=== PATIENT | male | born 1970 | race Caucasian/White ===

== ENCOUNTER 2018-03-22 16:30 | Outpatient (RCR) | payer OTHER, SELFPAY ==
--- NOTE | 2018-02-15 18:10 | HP.PTEVAL_ITS ---
Patient's Visit Information KASIE HAIR is a 47 year old M referred to Physical Therapy by ISAI JEFFERY with a diagnosis of LOW BACK PAIN ,BILATERAL KNEE PAIN. Date of Evaluation: 02/15/18 Physical Therapist: Milad Murrell PT, - Visit Plan Frequency: 2x /Week Duration: 4 Weeks Plan: AQUATIC PT for ROM/strength BILATERAL quads/hams/hip,Flexablity,lumbar ROM ,DLS - Subjective Subjective: This 47 y/o male presents to physical therapy for low back pain and shoulder pain 25 years.Patient has no injuries or trauma. Symtrical lumbar pain and isolated right knee pain greater than left. Patient has had prior PT. Symptoms worse in lumbar with bending,twisting,lifting ,sitting,standing. Symtoms some better with walking and rest. Patient pain affects sleeping.Coughing/sneezing -. Seen DR recommended pain MEDS. Patient knee location bilateral knees. Symptoms worse with squatting,kneeling ,descend stairs ,AM. Patient pain in lumbar pain constant affect QOL and job demands,housework tasks. SOCAIL: . VOCATION: Installing garage doors - Pain Bilateral Back Pain Intensity (Out of 10): 6 Pain Intensity Range: 10 Bilateral Knee Pain Intensity (Out of 10): 6 Pain Intensity Range: 10 - Objective POSTURE:mild foward posture. SYMMTRIES : align. PALAPTION: tender joint line, paraspinals. GAIT: antalgic gait right side with decrease stance time. NEURO: denies parathesia/tingling ,reflexes L3-4,L4-5,L5-S1 1/3. AROM: knee flexion R : 0-115 degrees,L:0-120 supine knee flexion. MMT: quads/hip flexion right 3+/5, left 4-/5,hams 4-/5,ankle DF 4/5. LUMBAR ROM: flexion min loss ,extension min loss with pain mside glides min loss pain. FLEXABLITY: hams min loss left , tight mod loss - Special Tests L/S Slump test left side: Negative L/S Slump test right side: Negative L/S Left Straight Leg Raise: Negative L/S Right Straight Leg Raise: Positive Lumbar Standing: Flexion - Mechanical Response: No effect Lumbar Standing: Flexion - Symptoms During Testing: Increases Lumbar Standing: Flexion - Symptoms After Testing: No worse Lumbar Standing: Extension - Mechanical Response: No effect Lumbar Standing: Extension - Symptoms During Testing: Increases Lumbar Standing: Extension - Symptoms After Testing: No worse R Knee Manuel - Meniscus: Positive R Knee Apley - Meniscus: Negative R Knee Maximiliano - ACL: Negative R Knee Anterior Drawer - ACL: Negative R Knee Posterior Sag - PCL: Negative R Knee Valgus - MCL: Negative R Knee Varus - LCL: Negative R Knee Patellar Apprehension - PFS: Positive R Knee Patellar Grind - PFS: Negative L Knee Manuel - Meniscus: Negative L Knee Apley - Meniscus: Negative L Knee Anterior Drawer - ACL: Negative L Knee Valgus - MCL: Negative L Knee Varus - LCL: Negative - Goals Goal 1:: Independant with Aquatic PT Goal Time Frame: 4-6 Weeks Goal 2:: Patient decrease pain knees and back by 50% to improve function with walking and standing. Goal Time Frame: 4-6 Weeks Goal 3:: Patient to increase strength of quads/hams 4-/5 right ,left 4/5 to improve function with walking standing and ASL'S Goal Time Frame: 4-6 Weeks Goal 4:: Patient to improve lumbar ROM for function of recovery Goal Time Frame: 4-6 Weeks Goal 5:: Patient increase ROM knee by 5-10 degrees to improve stairs adn function Goal Time Frame: 4-6 Weeks Goal 6:: Patient be able to perform ADL's and job demands with min limitation Goal Time Frame: 4-6 Weeks - Rehabilitation Potential Physical Therapy Diagnosis: This 47 y/o male has symmtrical lumbar pain and bilateral knee pain with decrease strength right greater than left knee, decrease knee ROM,Lumbar ROM impairs gait and withfunction with ADL'S ,job and housework tasks Rehabilitation Potential: Good - Anticipated Interventions Patient/Client Instruction: Educate patient on: Condition, Plan of Care For the Purpose of:: To decrease pain, To increase ROM, To improve muscle performance and motor function, To improve ability to perform ADL's, To increase tolerance to activity/condition/position, To improve ability of physical actions for home/community/work/leisure, To improve health of tissue, To decrease soft tissue restriction, To increase flexibility/ROM, To improve health and function, To improve ability to perform tasks related to life management Therapeutic Exercise to Include: Strength training, Body mechanics, Postural training, Flexibilty training, In an aquatic setting, Active ROM, Dynamic Lumbar Stabilization For the Purpose of:: To decrease pain, To increase ROM, To improve muscle performance and motor function, To improve ability to perform ADL's, To increase tolerance to activity/condition/position, To improve ability of physical actions for home/community/work/leisure, To improve health of tissue, To decrease soft tissue restriction, To increase flexibility/ROM, To reduce risk of recurrence, To improve ability to perform tasks related to life management Thank you for the opportunity to evaluate your patient. For Medicare and Medicare HMO plans, please review the plan of care and approve it. It will need to be FAXED BACK to us at [phone] for Medicare purposes. Please let me know if there are questions or concerns regarding this plan of care. Physician Signature: Date:
--- NOTE | 2018-07-09 12:27 | HP.PTDCSUM ---
HP - PT D/C Summary It has been my pleasure to treat KASIE HAIR under orders from ISAI JEFFERY, for the diagnosis of LOW BACK PAIN ,BILATERAL KNEE PAIN for a total of 8 visit(s). Discharge Date: 03/22/18 Please see the following information for a summary of their discharge status. - Subjective Subjective: Patient thinks PT didnt helped. Plan to do see DRCandido - Pain Bilateral Back Pain Intensity (Out of 10): 4 Bilateral Knee Pain Intensity (Out of 10): 4 - Overall Improvement % Improvement: 25 - Objective Objective/Function: POSTURE: mild foward posture. GAIT: normal everett. MMT: 4/5. LUMBAR ROM: flexion min/mod loss ,extension min/mod loss ,side glides min loss. FLEXABLITTY: mod hams. AROM: 0-130 degrres knee - Goals Goal 1:: Independant with Aquatic PT Goal Progress: Progressing Goal 2:: Patient decrease pain knees and back by 50% to improve function with walking and standing. Goal Progress: Not Progressing Goal 3:: Patient to increase strength of quads/hams 4-/5 right ,left 4/5 to improve function with walking standing and ASL'S Goal Progress: Goal Met Goal 4:: Patient to improve lumbar ROM for function of recovery Goal Progress: Progressing Goal 5:: Patient increase ROM knee by 5-10 degrees to improve stairs adn function Goal Progress: Progressing Goal 6:: Patient be able to perform ADL's and job demands with min limitation Goal Progress: Progressing - Plan Plan: D/C RTD - D/C Information If there are questions or concerns regarding this patient's physical therapy, please feel free to call me at [phone]. Thank you for the referral of this patient. Sincerely, Milad Murrell, PT, Cert MDT, OCS
== END 2018-03-22 19:00 | disposition home or self-care (01) ==
LOC: PT 16:30
DX: M54.5 Low back pain (principal)
CPT/HCPCS: 97113; 97162; 97530; G8978; G8979

== ENCOUNTER → 2023-03-13 | Outpatient (CLI) | payer OTHER, SELFPAY ==
[2023-03-13] MEDS: Methacholine Chloride 18 ml neb kit INHALATION (13:22)
--- NOTE | 2023-03-14 07:17 | BRONCHALL ---
Bronchoprovocation Challenge Bronchoprovocation Challenge Bronchoprovocation Challenge: INTRODUCTION: The patient is a 52-year-old male who presents for a bronchoprovocation challenge secondary to a diagnosis of chronic cough. Respiratory therapy reported good patient effort. INTERPRETATION: Initial spirometry did not show any large airways obstructive ventilatory defect with preserved airflows throughout. The patient was then given progressively increasing doses of methacholine in a standardized fashion. During testing, the patient's FEV1 did not drop to the threshold criteria to be considered a positive test. IMPRESSION: Negative methacholine inhalation challenge.
== END | disposition home or self-care (01) ==
LOC: PSN 13:05
DX: R05.3 Chronic cough (principal)
CPT/HCPCS: 94070; 95070

== ENCOUNTER 2023-08-02 11:35 | Emergency (ER) | payer OTHER, SELFPAY ==
[2023-08-02 11:36] VITALS: BP 136/83; PULSE 70; RESP 16; TEMP 35.8; O2SAT 99; BMI 31.4
--- NOTE | 2023-08-02 11:48 | EDS_ITS ---
HPI <GRETEL Medina - Last Filed: 08/02/23 16:19> History of Present Illness Chief Complaint: Back Narrative Narrative: Patient is a 52-year-old male with history of chronic abdominal hernia, GERD, chronic back pain who presents to the emergency department for acute onset of back pain. 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 Patient states 1 week ago he developed some lower back pain, and states that it is getting worse. Patient denies any history of IV drug abuse, denies any fever or chills, denies any recent surgeries. Patient denies any radiation down both legs, denies any bowel or bladder incontinence PFS <GRETEL Medina - Last Filed: 08/02/23 16:19> [facility] Medical History (Updated 08/02/23 @ 12:[address] Dennis Carreon MD) GERD (gastroesophageal reflux disease) Lung nodules Home Medications metaxalone 800 mg tablet 800 mg PO TID #21 tabs 08/02/23 [Rx Last Taken Unknown] naproxen 500 mg tablet (Naprosyn) 500 mg PO BID PRN pain #20 tabs 08/02/23 [Rx Last Taken Unknown] Allergy/AdvReac Type Severity Reaction Status Date / Time amitriptyline Allergy Unknown RASH,MYALGI Verified 02/05/23 10:48 A Social History Smoking Status: Never smoker ROS <GRETEL Medina - Last Filed: 08/02/23 16:19> ROS ED ROS Narrative Constitutional: Negative for fever, chills, weight loss, weakness Eyes: Negative for vision loss, vision change, double vision ENT: Negative for any sore throat, ear pain, congestion Cardiovascular: Negative for any chest pain, tightness, palpitations Respiratory: Negative for any cough, sputum production, hemoptysis, dyspnea, dyspnea on exertion, orthopnea Gastrointestinal: Negative for any abdominal pain, nausea, vomiting, diarrhea, constipation, blood in stool, blood in vomit : Negative for any urinary frequency, dysuria, retention, blood in urine Muscle skeletal: Negative for any neck pain. Positive for lower back pain Neurological: Negative for any headache, syncope, dizziness Skin: Negative for any rashes, itching, abrasions, lacerations Psychiatric: Negative for any depression, anxiety, stress, suicidal ideation, homicidal ideation Hematologic: Negative for any excessive bruising, easy bleeding EXAM <GRETEL Medina - Last Filed: 08/02/23 16:19> Physical Exam Narrative Exam Narrative: Vital signs reviewed. HEET: Head normocephalic atraumatic, TMs clear bilaterally. Posterior pharynx is clear, moist mucous membranes. Nares clear bilaterally. Neck: Supple with no lymphadenopathy or tenderness. No signs of meningismus. Cardiac: Regular rate and rhythm no murmurs gallops or rubs, equal peripheral pulses bilaterally. Respiratory: Lungs clear to auscultation bilaterally. No chest tenderness. Abdomen: Soft, nontender, nondistended. No abdominal bruit or pulsatile masses. No hepatosplenomegaly Extremities: No peripheral edema, no signs of gross trauma or deformity. Active full range of motion of all extremities. Neuro: Cranial nerves II through XII intact, no focal neurological deficits. Skin: Clean dry and intact with no rash, purpura, petechiae, vesicles or pustules. Backs/flank: No CVA tenderness, no midline spinal tenderness, no deformity. Patient's pain is worse with movement, rotation, bending and flexing. Most the pain is paraspinal on both the right and left lower lumbar spine. There is no midline spinal tenderness. Psych: Normal mood and affect. No SI, HI or acute psychosis. Const Vital Signs: 08/02/23 11:36 Temperature 96.5 F L Temperature Source Temporal Pulse Rate 70 Respiratory Rate 16 Blood Pressure 136/83 H Blood Pressure Mean 100 Pulse Ox 99 Oxygen Delivery Method Room Air <Dr. Dennis Carreon MD - Last Filed: 08/02/23 12:23> Physical Exam Const Vital Signs: 08/02/23 11:36 Temperature 96.5 F L Temperature Source Temporal Pulse Rate 70 Respiratory Rate 16 Blood Pressure 136/83 H Blood Pressure Mean 100 Pulse Ox 99 Oxygen Delivery Method Room Air [facility] <GRETEL Medina - Last Filed: 08/02/23 16:19> [facility] Treatment and Re-Evaluation :: Patient appears to be in no obvious distress, vital signs are stable. Patient presents to the emergency department for worsening back pain over 1 week. No obvious injury, at this time I do not believe any x-rays are indicated secondary to there being no trauma. Patient has no midline spinal tenderness. Patient differential diagnosis includes cauda equina disease, spinal abscess however these are low on my suspicion was secondary to the lack of symptoms, lumbar sprain, lumbar strain, muscle skeletal pain. Patient will receive IM Toradol, IM Norflex, patient be reevaluated. On my examination, patient was ambulatory, able to walk around the room, patient had no weakness to his lower extremities. Patient had slight relief. At this time, patient be discharged home. Patient be given naproxen, Skelaxin, patient be given 1 Valium prior to discharge. At this time, patient be diagnosed with muscle skeletal lower lumbar strain. At this time, I do believe the patient is stable for discharge. Patient was given return precautions. <Dr. Dennis Carreon MD - Last Filed: 08/02/23 12:23> [facility] MDM Narrative Medical decision making narrative: I have personally performed a face to face assessment of the patient and have reviewed the YORDAN Note. I performed a substantive portion of the visit including all aspects of the following. My arvizu findings include: History is [52-year-old male has had chronic back pain for years. 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 He has had lower back pain on both sides of his lower back for the last week. Worse with movement. No radiation to his legs. No weakness or numbness. No bowel or bladder incontinence. No prior back surgery. No fall or trauma. No fever. ] Exam is [ 52-year-old male vital signs stable afebrile. HEENT exam normal. Lungs clear. Heart regular rhythm no murmur. Abdomen soft nontender. Moving all 4 extremities. Neurovascular intact. No cauda equina. No saddle anesthesia. Normal 5 out of 5 dorsi and plantarflexion. He gets up and stands and walks about the room without any difficulty. Back exam spine is nontender. There is no redness or warmth. No signs of trauma. He has reproducible paralumbar soft tissue tenderness consistent with myofascial spasm. Neurologic exam normal.] Medical Decision Making [ Treated with Skelaxin. Discharged home.Treat as musculoskeletal back pain and muscle spasm.] Other additions or changes: [None] Discharge Plan Triage Chief Complaint: Back ED Midlevel Provider: Don Lee ED Provider: Dennis Carreon Dx/Rx/DC Orders Clinical Impression: Acute lumbar myofascial strain, Lumbar paraspinal muscle spasm Instructions: Understanding Lumbosacral Strain, ED Muscle Spasm Prescriptions: New naproxen [Naprosyn] 500 mg tablet 500 mg PO BID PRN (Reason: pain) Qty: 20 0RF metaxalone 800 mg tablet 800 mg PO TID Qty: 21 0RF Primary Care Provider: [facility] Referrals: [facility] Doctor,Out of [Non-Staff] - Activity Restrictions/Additional Instructions: Please perform gentle stretching, ice and heat. Disposition Disposition: Home, Self Care Discharge Date/Time: 08/02/23 12:47
[2023-08-02] MEDS: Ketorolac 30 MG/ML Syringe IM (11:54)
[2023-08-02] MEDS: Orphenadrine 60 MG/2 ML Ampul IM (11:55)
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
--- NOTE | 2023-08-02 12:37 | ED.RN ---
DR NUNEZ WANTS P.O. VALIUM ORDER TO BE GIVEN TO THE PATIENT TO BE TAKEN HOME BECAUSE THE PATIENT DROVE HIMSELF HERE. DISCUSSED WITH CHARGE NURSE Dorie FERGUSON AND INSTRUCTED TO GIVE MEDICATION TO DR. NUNEZ. DR NUNEZ HAS 5MG VALIUM TABLET TO ADMINISTER TO THE PATIENT.
[2023-08-02] MEDS: diazePAM 5 MG Tablet PO (12:39)
== END 2023-08-02 12:47 | disposition home or self-care (01) ==
LOC: ED 12:25
PROVIDERS: Emergency Provider Emergency Medicine; Visit Provider Emergency Medicine
DX: S39.012A Strain of muscle, fascia and tendon of lower back, initial encounter (principal); M62.830 Muscle spasm of back; K21.9 Gastro-esophageal reflux disease without esophagitis; G89.29 Other chronic pain; X58.XXXA Exposure to other specified factors, initial encounter
CPT/HCPCS: 96372; 99282